=== PATIENT | male | born 1980 | race Caucasian/White ===

== ENCOUNTER 2016-07-12 17:38 | Emergency (ER) | payer SELFPAY ==
[~2016-07-12] VITALS: Ht 182.9 cm; Wt 90.0 kg
[~2016-07-12 17:38] MED LIST: CLIN1CAP5 PO; HYDR-3533 PO; HYDR-3534 PO
[2016-07-12 17:42] VITALS: BP 149/99; PULSE 108; RESP 16; TEMP 98.4; O2SAT 96
[2016-07-12] MEDS ORDERED: PROPARACAINE HCL 0.5% OPHT SOLN 15 ML BTL RIGHT EYE ONE (18:45)
[2016-07-12] MEDS ORDERED: TETANUS/DIPHTHERIA TOXOID ADULT 0.5 ML VIAL IM ONE (19:15)
--- NOTE | 2016-07-12 19:23 | PD ---
HPI Chief Complaint: Eye Problems/Injury Time Seen by Provider: 19:00 Travel History International Travel<30 days: No Contact w/Intl Traveler<30days: No Traveled to known affect area: No History of Present Illness HPI Patient is a 35-year-old male presenting with 4 by sensation left eye. Present for 3 days. He states he was not wearing eye protection and was grinding metal pipes when he felt something in his left eye. It was minimal on the initial day but was worse yesterday and then worse again today. He has tearing and photophobia. Has blurred vision. 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 He denies any pain behind the eye or headache. He denies any "blind spots ". Last tetanus vaccine greater than 5 years. He denies any chronic medical conditions. PFSH Past Medical History Diminished Hearing: No Immunizations Current: Yes Tetanus Vaccination: > 5 Years Influenza Vaccination: No Past Surgical History Other Surgery: Yes (3 METAL PLATES IN FACE) Social History Alcohol Use: Yes (BEER DAILY) Tobacco Use: Yes (1 ppd) Substance Use: No Allergies-Medications (Allergen,Severity, Reaction): Coded Allergies: Darvocet-N 100 (Verified Allergy, Intermediate, Nausea/Vomiting, 07/12/16) Motrin (Verified Allergy, Intermediate, Nausea/Vomiting, 07/12/16) Uncoded Allergies: WOOL (Allergy, Severe, Hives, 01/31/13) Reported Meds & Prescriptions Reported Meds & Active Scripts Active Tramadol (Tramadol HCl) 50 Mg Tab 50 Mg PO Q6H PRN Ciprofloxacin Opth Drops (Ciprofloxacin HCl) 0.3% Soln 2 Drop LEFT EYE Q4H 1-2 drops in affected eye (S) every 2 hours while awake for 2 days and then every 4 hours for 5 days. Review of Systems General / Constitutional: No: Fever Eyes: Positive: Other (see the history of present illness) HENT: No: Headaches, Vertigo, Lightheadedness Physical Exam Narrative GENERAL: Well-developed and well-nourished adult male in no acute distress. SKIN: Warm and dry. Good turgor without tenting. HEAD: Normocephalic and atraumatic. EYES: There is a punctate foreign body present at the 9 o'clock position just medial to the pupil. No hyphema or hypopyon. Fluorescein stain reveals uptake at this region, negative Donald sign. PERRL bilaterally, 5mm. EOMI bilaterally. Visual ashton normal to confrontation. Moderate left conjunctival injection without limbal injection. Lid eversion reveals no foreign bodies. No proptosis. Lids without edema or erythema. ENT: Buccal mucosa pink and moist. Oropharynx free of erythema, tonsillar hypertrophy, masses, swelling, asymmetry and exudates. Uvula midline and airway patent. NECK: Supple, no midline tenderness, crepitus or step-offs. Trachea midline, no JVD. No cervical or facial lymphadenopathy. CARDIOVASCULAR: Regular rate and rhythm without murmurs, rubs, clicks or gallops. RESPIRATORY: Clear to auscultation bilaterally with symmetrical rise and fall, no distress or use of accessory muscles. NEUROLOGIC: CN II-XII grossly intact. Awake and alert. Motor grossly within normal limits. Normal speech. PSYCHIATRIC: Appropriate mood and affect; insight and judgment normal. Data Data Last Documented VS Vital Signs Date Time Temp Pulse Resp B/P Pulse Ox O2 Delivery O2 Flow Rate FiO2 07/12/16 17:42 98.4 108 16 149/99 96 Orders Proparacaine 0.5% Opth Soln (Alcaine 0.5 (07/12/16 18:45) Ct Facial Bones W/O Iv Cont (07/12/16 19:15) Tetanus/Diphtheria Tox Adult (Tetanus/Di (07/12/16 19:15) Mandatory Outpatient Referral (07/12/16 19:24) [facility] Medical Decision Making Medical Screen Exam Complete: Yes Emergency Medical Condition: Yes Interpretation(s) Vital Signs Date Time Temp Pulse Resp B/P Pulse Ox O2 Delivery O2 Flow Rate FiO2 07/12/16 17:42 98.4 108 16 149/99 96 Differential Diagnosis eye foreign body versus corneal abrasion versus corneal ulceration Narrative Course Patient's 35-year-old male presenting with left eye foreign body sensation after feeling like he got some itching in the eye while grinding metal 3 days prior without hypertension. There is visible foreign body superficially embedded that was easily removed with moistened cotton swab. Mild fluorescein uptake at this point, no evidence of ulceration or globe compromise. Visual acuity is initially 20/70 in the affected eye but improved to 2030 after proparacaine and removal of the foreign body. Tetanus vaccine given today. Ordered CT of the orbits as he was high-speed grinding to rule out other foreign bodies deeper which was negative for radiopaque foreign body, previous fracture repair with plate is visible. Patient given prescription for Lortab and Cipro ophthalmic. Mandatory referral was entered, explained this to the patient that is critical to follow-up with ripsaw operator tomorrow.See discharge paperwork for further instructions. The plan was discussed with the patient who acknowledged their understanding and agreement. Reinforced the follow-up with primary care is critically important. Patient instructed on emergent conditions that should prompt return to ED. Diagnosis Primary Impression: Foreign body of left eye Qualified Code: T15.92XA - Foreign body of left eye, initial encounter Additional Impression: Corneal abrasion Qualified Code: S05.02XA - Corneal abrasion, left, initial encounter Patient Instructions: Corneal Abrasion (ED), General Instructions Additional Instructions: Take medications as prescribed Do not rub or pick at your eyes Do not place any OTC eyedrops in her eyes Call [facility] patient assistance tomorrow for mandatory referral to see ripsaw operator Return to the ED for any acute worsening of symptoms Med/Other Pt SpecificInfo: Prescription(s) given Scripts Tramadol 50 Mg Tab50 Mg PO Q6H PRN (PAIN) #12 TAB Ref 0 Prov:Loida Sheffield MD 07/12/16 Ciprofloxacin Opth Drops 0.3% Soln2 Drop LEFT EYE Q4H #1 BOTTLE 1-2 drops in affected eye (S) every 2 hours while awake for 2 days and then every 4 hours for 5 days. Prov:Loida Sheffield MD 07/12/16 Disposition: 01 DISCHARGE HOME Condition: Stable William Saldana III Jul 12, 2016 19:23
[2016-07-12] MEDS ORDERED: TRAM50TA PO (19:24)
[2016-07-12] MEDS ORDERED: CIPR0.3S2 LEFT EYE (19:24)
--- NOTE | 2016-07-12 19:44 | RADHPO ---
EXAM DATE/TIME: 07/12/2016 19:21 [facility] COMPARISON: No previous studies available for comparison. INDICATIONS : Metal in the right eye. RADIATION DOSE: 29.85 CTDIvol (mGy) MEDICAL HISTORY : None SURGICAL HISTORY : Multiple facial surgeries. ENCOUNTER: Initial ACUITY: 1 day PAIN SCORE: 7/10 LOCATION: Left facial TECHNIQUE: Volumetric scanning of the facial bones was performed. Using automated exposure control and adjustme nt of the mA and/or kV according to patient size, radiation dose was kept as low as reasonably achiev able to obtain optimal diagnostic quality images. FINDINGS: ORBITS: The orbital and infraorbital osseous structures are intact. The retroconal structures have a normal configuration. No radiopaque foreign bodies are seen. NASAL BONE: The nasal bone and maxillary spine are intact ZYGOMATIC ARCHES: Symmetric without evidence of fracture. SINUSES: The maxillary, ethmoid and frontal sinuses are intact. No air-fluid levels seen. NASAL CAVITY: The nasal septum is intact and midline. The lacrimal ducts are intact. SOFT TISSUES: No radiopaque foreign bodies seen. No soft-tissue swelling is seen. INTRACRANIAL: No intracranial air seen. CRIBIFORM PLATE: Grossly intact. CONCLUSION: 1. No acute fracture. Previous plate and screw fixation right maxilla. Mild mucosal thickening in the anterior ethmoids. No unexpected radiopaque foreign bodies in the orbits. Ibrahima Tsang MD on 2016 at 19:39 Board Certified Radiologist. This report was verified electronically.
== END 2016-07-12 20:03 | disposition home or self-care (01) ==
LOC: PHED 17:38 → PHEFT 20:03
DX: T15.02XA Foreign body in cornea, left eye, initial encounter (principal); F17.210 Nicotine dependence, cigarettes, uncomplicated; Z23 Encounter for immunization; X58.XXXA Exposure to other specified factors, initial encounter; Y99.8 Other external cause status
CPT/HCPCS: 65220; 70486; 90471; 90714